=== PATIENT | male | born 1995 | race Native Hawaiian/Other Pacific Islander ===

== ENCOUNTER 2020-11-26 21:29 | Emergency (ER) | payer SELFPAY ==
[~2020-11-26] VITALS: Ht 162.6 cm; Wt 72.7 kg
[2020-11-26] MEDS ORDERED: OMNICEF 300MG300 MG PO (22:34)
[2020-11-26 22:57] VITALS: BP 152/78; PULSE 76
== END 2020-11-26 22:57 | disposition home or self-care (01) ==
LOC: COL.ER 21:29
DX: H65.92 Unspecified nonsuppurative otitis media, left ear (principal)